=== PATIENT | male | born 1995 | race Two or more races ===

== ENCOUNTER 2019-05-31 15:49 | Emergency (ER) | payer OTHER ==
[~2019-05-31] VITALS: Ht 172.7 cm; Wt 81.6 kg
[2019-05-31 16:00] VITALS: BP 123/81
== END 2019-05-31 16:53 ==
LOC: EEVIPCON 15:49 → ER 15:49
DX: S93.401A Sprain of unspecified ligament of right ankle, initial encounter (principal); X58.XXXA Exposure to other specified factors, initial encounter; Y93.89 Activity, other specified; Y92.89 Other specified places as the place of occurrence of the external cause; Y99.8 Other external cause status
CPT/HCPCS: 73610